=== PATIENT | male | born 1980 | race African-American/Black ===

== ENCOUNTER 2021-06-02 09:00 | Inpatient (IN) ==
[2021-06-02] MEDS ORDERED: SODIUM CHLORIDE 0.9% 1000ML 1,000 ML IV SCH (09:30)
--- NOTE | 2021-06-02 09:40 | Emergency Department Note ---
Impression & Plan DKA (diabetic ketoacidosis), Altered mental status, Dehydration, COVID-19 ED Provider Note Provider: Alex Phillip MD DATE OF SERVICE: 06/02/2021 CHIEF COMPLAINT: Confusion/fatigue HISTORY OF PRESENT ILLNESS: Patient is a 41-year-old presenting via ambulance from the long-term today where he is an inmate reports that he has been a bit more sluggish and fatigued since yesterday. Evidently yesterday had a headache around one of the other inmates gave him 2 tablets which by report he was told her Tylenol. Records from the present in case this occurred around 11 AM and by report was a total of 600 mg of Trileptal. Records from the long-term indicate he was seen [facility] following commands but was a little bit "sluggish ". Patient was given some Narcan and evidently had some improvement with this. Records indicate this morning the [facility] complaining of some chest pain and pressure and was experiencing some increased labored breathing. He was sent here for further evaluation. Blood sugar was noted to be over 400 prior to arrival. In discussion with the patient himself he states he is just very thirsty and wants some juice. States he had some juice this morning but no breakfast. States his head is feeling better. Denies any abdominal pain or chest pain at this time. Denies any numbness or weakness. Denies any nausea. Patient knows these at the hospital but states 1999. He is laughing and just for most question redirection states "just give me some juice man". While he is secured with shackles he is moving all extremities. He denies other coingestants to me or drugs. Denies a history of diabetes to his knowledge REVIEW OF SYSTEMS: A total of 10 review of systems was obtained and negative except as stated above in the HPI. 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 PERRL NECK: Trachea midline. Supple. ENT: Mucous membranes pink and moist. LUNGS: Airway patent. No retractions. Breath sounds clear HEART: Regular tachycardic rate and rhythm. No chest wall tenderness ABDOMEN: Soft and non-tender, without guarding or rebound. SKIN: Acyanotic, warm, dry, without rashes EXTREMITIES: Without swelling, tenderness or deformity handcuffs and leg shackles in place with guards at bedside. NEUROLOGICAL: No focal deficits moving all extremities without significant focal weakness appreciated. No aphasia. No facial droop with some minimally slurred speech at times. Intact gross sensation in all 4 extremities. EK return in sinus tachycardia. No PVC or PAC. No acute ST segment elevation or depression. QTC 534. Left axis. CONTINUOUS CARDIAC MONITORING: was ordered and showed a heart rate of 90s-110s bpm in normal sinus rhythm to sinus tachycardia Patient's laboratory studies and imaging reviewed. Differential includes Infection, dehydration, metabolic abnormality, hypo/hyperglycemia, electrolyte disturbance, anemia, hypoxia, cardiac sources, intracerebral event, toxicologic, neurologic, as well as other pathologies. IMPRESSION/MEDICAL DECISION MAKING: Patient is a little bit fatigued and slow to respond but answers questions. He is moving all extremities and denies significant pain. Patient is not the best historian additional history obtained from records from the long-term available. Patient denies any pain at this time. EKG was obtained as well as basic labs. Given some fatigue CT the head was obtained as well as toxicology studies. Given some IV fluids. Covid test completed. EKG without evidence of STEMI. QTC is noted to be prolonged. Pupils not pinpoint but with some mild confusion and some response yesterday, will trial a dose of narcan here. Patient denies chest pain currently but maybe some earlier per his report. Chest x-ray and CT of the head per radiology without any significant acute abnormalities noted. Patient's Covid test does return positive may explain some of his fatigue issues. UDS was negative. Urine not impressive for infection. Some difficulty establishing IV access and some difficulty obtaining blood work. No alcohol elevation. No evidence of significant salicylate or aspirin toxici ty. Ketones in the urine with significant anion gap and low bicarb. Creatinine 1.6 is likely elevated but no prior baseline available. Glucose again has been elevated. Troponin not elevated and no transaminitis. Procalcitonin not severely elevated and white blood cell count just above normal at 10.8. Doubt this is significantly infectious. Question new onset diabetes and DKA. Given additional IV fluids and insulin drip started given these concerns. This could explain some of his encephalopathy as well. Patient will require further care at the hospital. Hospitalist contacted. ABG shows acidosis consistent with DKA. All Covid positive I believe this is less likely to be the primary pathology of his illness. DIAGNOSIS: DKA, confusion, dehydration, COVID-19 positive test DISPOSITION: Hospitalist will evaluate Patient was agreeable with this plan. Critical Care I have personally spent 46 minutes of critical care time in the direct management of this patient. This includes bedside care, interpretation of diagnostic studies, and testing, discussion with consultants, patient, and other required patient management activities. These 46 minutes is in excess of all separately billable procedures. Past Med/Surg History Social History Smoking Status: Unknown if ever smoked Tobacco Type: Cigarettes Do You Dip or Chew Tobacco: No; Hx Alcohol Use: No Hx Substance Use: No Preferred Language: Polish Communication Ability: Effective Sharepoint Admin Required: No Beliefs That Will Affect Care: None Current Living Situation: Other Other Information That Helps Us Care for You: No Feels Safe at Home: Yes Assistive Devices: None Allergies Allergies Allergy/AdvReac Type Severity Reaction Status Date / Time No Known Allergies Allergy Unverified 06/02/21 11:43 Home Meds Home Medications Medication Instructions Recorded Confirmed ciclesonide 160 mcg/actuation 1 puff INHALATION BID 06/02/21 06/02/21 aerosol inhaler (Alvesco) levalbuterol tartrate 45 2 inh INHALATION QID PRN 06/02/21 06/02/21 mcg/actuation aerosol inhaler (Xopenex HFA) Results & Data (ED) Vital Signs Vital Signs - 24 hr 06/02/21 09:11 06/02/21 11:50 Temperature 36.5 C Temperature Source Oral Pulse Rate 103 H Respiratory Rate 16 20 Respiratory Depth Normal Blood Pressure 137/99 Blood Pressure [Right Arm] 141/100 H Blood Pressure Mean 111 Blood Pressure Mean [Right Arm] 113 Pulse Oximetry 98 100 Oxygen Delivery Method Room Air Room Air Sepsis Recent Fever Within 48 Hours No Sepsis New/Unexplained Change in Mental Status N/A Sepsis Action Taken by Nursing No Action Required Laboratory Data Result diagrams: 06/02/21 10:36 06/02/21 14:16 Lab Results 06/02/21 06/02/21 06/02/21 Range/Units 09:33 09:45 09:47 WBC (4.8-10.8) K/uL RBC (4.7-6.1) M/uL Hgb (14.0-18.0) g/dL Hct (42-52) % MCV (80-100) fL MCH (25-34) pg MCHC (32-36) g/dL RDW Std Deviation (36.4-46.3) fL RDW Coeff of Gisselle (11.5-14.5) % Plt Count (130-400) K/uL MPV (7.4-10.4) fL Immature Gran % (Auto) % Neut % (Auto) % Lymph % (Auto) % Todd % (Auto) % Eos % (Auto) % Baso % (Auto) % Neut # (Auto) (1.4-6.5) K/uL Lymph # (Auto) (1.2-3.4) K/uL Todd # (Auto) (0.11-0.59) K/uL Eos # (Auto) (0-0.5) K/uL Baso # (Auto) (0-0.2) K/uL Immature Gran # (Auto) (0.00-0.02) K/uL ABG pH (7.35-7.45) ABG pCO2 (35-46) mmHg ABG pO2 (80-95) mmHg ABG HCO3 (19-24) mmol/L ABG O2 Saturation (90-95) % ABG Base Excess (-9-1.8) mEq/L Chuy Test (Pos) Barometric Pressure mm/Hg Oxygen Given Sodium (136-145) mmol/L Potassium (3.5-5.1) mmol/L Chloride (98-107) mmol/L Carbon Dioxide (21-32) mmol/L Anion Gap (3-11) BUN (7-18) mg/dl Creatinine (0.6-1.4) mg/dl Est Cr Clr Drug Dosing ml/min Est GFR ( Amer) ml/min Est GFR (Non-Af Amer) ml/min BUN/Creatinine Ratio (10-20) Glucose (70-99) mg/dl POC Glucose 411 H* (70-99) mg/dl Estimat Average Glucose mg/dl Hemoglobin A1c (4.5-5.6) % Calcium (8.5-10.1) mg/dl Total Bilirubin (0.2-1) mg/dl AST (15-37) U/L ALT (12-78) Alkaline Phosphatase (45-117) U/L Troponin I (0-0.045) ng/ml Total Protein (6.4-8.2) gm/dl Albumin (3.4-5.0) gm/dl Globulin (2.5-4.0) gm/dl Albumin/Globulin Ratio (0.9-2) Beta-Hydroxybutyric Acd (0.2-2.81) mg/dl Procalcitonin (0-0.5) ng/ml TSH (0.300-4.500) uIu/ml Urine Color Urine Appearance (Clear) Urine pH (4.5-7.5) Ur Specific [place] (1.000-1.030) Urine Protein (Negative) Urine Glucose (UA) (Negative) Urine Ketones (Negative) Urine Blood (Negative) Urine Nitrite (Negative) Urine Bilirubin (Negative) Urine Urobilinogen (Negative) Ur Leukocyte Esterase (Negative) Urine WBC (Auto) (0-5) /hpf Urine RBC (Auto) (0-4) /hpf U Hyaline Cast (Auto) (0-5) /lpf U Epithel Cells (Auto) (0-5) /lpf Urine Bacteria (Auto) (Negative) Salicylates (2.8-20) mg/dl Urine Opiates Screen Neg (Neg) Ur Methadone, Qual Neg (Neg) Acetaminophen (10-30) ug/ml Urine Barbiturates Neg (Neg) Ur Phencyclidine (PCP) Neg (Neg) U Amphetamin/Meth Scrn Neg (Neg) MDMA (Ecstasy) Screen Neg (Neg) U Benzodiazepines Scrn Neg (Neg) Ur Cocaine Metabolite Neg (Neg) U Marijuana (THC) Screen Neg (Neg) Ethyl Alcohol mg/dL (0-3) mg/dl SARS-CoV-2, RNA, NAAT POSITIVE A* (NEGATIVE) 06/02/21 06/02/21 06/02/21 Range/Units 09:47 09:56 09:57 WBC (4.8-10.8) K/uL RBC (4.7-6.1) M/uL Hgb (14.0-18.0) g/dL Hct (42-52) % MCV (80-100) fL MCH (25-34) pg MCHC (32-36) g/dL RDW Std Deviation (36.4-46.3) fL RDW Coeff of Gisselle (11.5-14.5) % Plt Count (130-400) K/uL MPV (7.4-10.4) fL Immature Gran % (Auto) % Neut % (Auto) % Lymph % (Auto) % Todd % (Auto) % Eos % (Auto) % Baso % (Auto) % Neut # (Auto) (1.4-6.5) K/uL Lymph # (Auto) (1.2-3.4) K/uL Todd # (Auto) (0.11-0.59) K/uL Eos # (Auto) (0-0.5) K/uL Baso # (Auto) (0-0.2) K/uL Immature Gran # (Auto) (0.00-0.02) K/uL ABG pH (7.35-7.45) ABG pCO2 (35-46) mmHg ABG pO2 (80-95) mmHg ABG HCO3 (19-24) mmol/L ABG O2 Saturation (90-95) % ABG Base Excess (-9-1.8) mEq/L Chuy Test (Pos) Barometric Pressure mm/Hg Oxygen Given Sodium 132 L (136-145) mmol/L Potassium 4.4 (3.5-5.1) mmol/L Chloride 103 (98-107) mmol/L Carbon Dioxide 4 L* (21-32) mmol/L Anion Gap 25.0 H (3-11) BUN 22 H (7-18) mg/dl Creatinine 1.63 H (0.6-1.4) mg/dl Est Cr Clr Drug Dosing 64.8 ml/min Est GFR ( Amer) 59.3 ml/min Est GFR (Non-Af Amer) 51.2 ml/min BUN/Creatinine Ratio 13.8 (10-20) Glucose 441 H* (70-99) mg/dl POC Glucose (70-99) mg/dl Estimat Average Glucose mg/dl Hemoglobin A1c (4.5-5.6) % Calcium 9.0 (8.5-10.1) mg/dl Total Bilirubin 0.5 (0.2-1) mg/dl AST 18 (15-37) U/L ALT 32 (12-78) Alkaline Phosphatase 139 H (45-117) U/L Troponin I < 0.015 (0-0.045) ng/ml Total Protein 9.1 H (6.4-8.2) gm/dl Albumin 3.7 (3.4-5.0) gm/dl Globulin 5.4 H (2.5-4.0) gm/dl Albumin/Globulin Ratio 0.7 L (0.9-2) Beta-Hydroxybutyric Acd 106.15 H (0.2-2.81) mg/dl Procalcitonin (0-0.5) ng/ml TSH 0.710 (0.300-4.500) uIu/ml Urine Color Yellow Urine Appearance Clear (Clear) Urine pH 5.0 (4.5-7.5) Ur Specific [place] 1.031 H (1.000-1.030) Urine Protein 2+ H (Negative) Urine Glucose (UA) 3+ H (Negative) Urine Ketones 4+ H (Negative) Urine Blood 2+ H (Negative) Urine Nitrite Negative (Negative) Urine Bilirubin Negative (Negative) Urine Urobilinogen Negative (Negative) Ur Leukocyte Esterase Negative (Negative) Urine WBC (Auto) 1-5 (0-5) /hpf Urine RBC (Auto) 0-4 (0-4) /hpf U Hyaline Cast (Auto) 1-5 (0-5) /lpf U Epithel Cells (Auto) 5-10 H (0-5) /lpf Urine Bacteria (Auto) Negative (Negative) Salicylates (2.8-20) mg/dl Urine Opiates Screen (Neg) Ur Methadone, Qual (Neg) Acetaminophen (10-30) ug/ml Urine Barbiturates (Neg) Ur Phencyclidine (PCP) (Neg) U Amphetamin/Meth Scrn (Neg) MDMA (Ecstasy) Screen (Neg) U Benzodiazepines Scrn (Neg) Ur Cocaine Metabolite (Neg) U Marijuana (THC) Screen (Neg) Ethyl Alcohol mg/dL < 3.0 (0-3) mg/dl SARS-CoV-2, RNA, NAAT (NEGATIVE) 06/02/21 06/02/21 06/02/21 Range/Units 09:57 10:36 10:36 WBC 10.82 H (4.8-10.8) K/uL RBC 6.02 (4.7-6.1) M/uL Hgb 18.3 H (14.0-18.0) g/dL Hct 52.7 H (42-52) % MCV 87.5 (80-100) fL MCH 30.4 (25-34) pg MCHC 34.7 (32-36) g/dL RDW Std Deviation 47.5 H (36.4-46.3) fL RDW Coeff of Gisselle 14.9 H (11.5-14.5) % Plt Count 479 H (130-400) K/uL MPV 10.1 (7.4-10.4) fL Immature Gran % (Auto) 1.1 % Neut % (Auto) 70.4 % Lymph % (Auto) 14.8 % Todd % (Auto) 13.2 % Eos % (Auto) 0.0 % Baso % (Auto) 0.5 % Neut # (Auto) 7.62 H (1.4-6.5) K/uL Lymph # (Auto) 1.60 (1.2-3.4) K/uL Todd # (Auto) 1.43 H (0.11-0.59) K/uL Eos # (Auto) 0.00 (0-0.5) K/uL Baso # (Auto) 0.05 (0-0.2) K/uL Immature Gran # (Auto) 0.12 H (0.00-0.02) K/uL ABG pH (7.35-7.45) ABG pCO2 (35-46) mmHg ABG pO2 (80-95) mmHg ABG HCO3 (19-24) mmol/L ABG O2 Saturation (90-95) % ABG Base Excess (-9-1.8) mEq/L Chuy Test (Pos) Barometric Pressure mm/Hg Oxygen Given Sodium (136-145) mmol/L Potassium (3.5-5.1) mmol/L Chloride (98-107) mmol/L Carbon Dioxide (21-32) mmol/L Anion Gap (3-11) BUN (7-18) mg/dl Creatinine (0.6-1.4) mg/dl Est Cr Clr Drug Dosing ml/min Est GFR ( Amer) ml/min Est GFR (Non-Af Amer) ml/min BUN/Creatinine Ratio (10-20) Glucose (70-99) mg/dl POC Glucose (70-99) mg/dl Estimat Average Glucose 384 mg/dl Hemoglobin A1c 15.0 H (4.5-5.6) % Calcium (8.5-10.1) mg/dl Total Bilirubin (0.2-1) mg/dl AST (15-37) U/L ALT (12-78) Alkaline Phosphatase (45-117) U/L Troponin I (0-0.045) ng/ml Total Protein (6.4-8.2) gm/dl Albumin (3.4-5.0) gm/dl Globulin (2.5-4.0) gm/dl Albumin/Globulin Ratio (0.9-2) Beta-Hydroxybutyric Acd (0.2-2.81) mg/dl Procalcitonin 0.15 (0-0.5) ng/ml TSH (0.300-4.500) uIu/ml Urine Color Urine Appearance (Clear) Urine pH (4.5-7.5) Ur Specific [place] (1.000-1.030) Urine Protein (Negative) Urine Glucose (UA) (Negative) Urine Ketones (Negative) Urine Blood (Negative) Urine Nitrite (Negative) Urine Bilirubin (Negative) Urine Urobilinogen (Negative) Ur Leukocyte Esterase (Negative) Urine WBC (Auto) (0-5) /hpf Urine RBC (Auto) (0-4) /hpf U Hyaline Cast (Auto) (0-5) /lpf U Epithel Cells (Auto) (0-5) /lpf Urine Bacteria (Auto) (Negative) Salicylates (2.8-20) mg/dl Urine Opiates Screen (Neg) Ur Methadone, Qual (Neg) Acetaminophen (10-30) ug/ml Urine Barbiturates (Neg) Ur Phencyclidine (PCP) (Neg) U Amphetamin/Meth Scrn (Neg) MDMA (Ecstasy) Screen (Neg) U Benzodiazepines Scrn (Neg) Ur Cocaine Metabolite (Neg) U Marijuana (THC) Screen (Neg) Ethyl Alcohol mg/dL (0-3) mg/dl SARS-CoV-2, RNA, NAAT (NEGATIVE) 06/02/21 06/02/21 06/02/21 Range/Units 10:36 12:40 12:56 WBC (4.8-10.8) K/uL RBC (4.7-6.1) M/uL Hgb (14.0-18.0) g/dL Hct (42-52) % MCV (80-100) fL MCH (25-34) pg MCHC (32-36) g/dL RDW Std Deviation (36.4-46.3) fL RDW Coeff of Gisselle (11.5-14.5) % Plt Count (130-400) K/uL MPV (7.4-10.4) fL Immature Gran % (Auto) % Neut % (Auto) % Lymph % (Auto) % Todd % (Auto) % Eos % (Auto) % Baso % (Auto) % Neut # (Auto) (1.4-6.5) K/uL Lymph # (Auto) (1.2-3.4) K/uL Todd # (Auto) (0.11-0.59) K/uL Eos # (Auto) (0-0.5) K/uL Baso # (Auto) (0-0.2) K/uL Immature Gran # (Auto) (0.00-0.02) K/uL ABG pH 7.09 L* (7.35-7.45) ABG pCO2 15 L (35-46) mmHg ABG pO2 126 H (80-95) mmHg ABG HCO3 4 L (19-24) mmol/L ABG O2 Saturation 97.9 H (90-95) % ABG Base Excess -23.0 L (-9-1.8) mEq/L Chuy Test POS (Pos) Barometric Pressure 729.1 mm/Hg Oxygen Given ROOM AIR Sodium (136-145) mmol/L Potassium (3.5-5.1) mmol/L Chloride (98-107) mmol/L Carbon Dioxide (21-32) mmol/L Anion Gap (3-11) BUN (7-18) mg/dl Creatinine (0.6-1.4) mg/dl Est Cr Clr Drug Dosing ml/min Est GFR ( Amer) ml/min Est GFR (Non-Af Amer) ml/min BUN/Creatinine Ratio (10-20) Glucose (70-99) mg/dl POC Glucose 422 H* (70-99) mg/dl Estimat Average Glucose mg/dl Hemoglobin A1c (4.5-5.6) % Calcium (8.5-10.1) mg/dl Total Bilirubin (0.2-1) mg/dl AST (15-37) U/L ALT (12-78) Alkaline Phosphatase (45-117) U/L Troponin I (0-0.045) ng/ml Total Protein (6.4-8.2) gm/dl Albumin (3.4-5.0) gm/dl Globulin (2.5-4.0) gm/dl Albumin/Globulin Ratio (0.9-2) Beta-Hydroxybutyric Acd (0.2-2.81) mg/dl Procalcitonin (0-0.5) ng/ml TSH (0.300-4.500) uIu/ml Urine Color Urine Appearance (Clear) Urine pH (4.5-7.5) Ur Specific [place] (1.000-1.030) Urine Protein (Negative) Urine Glucose (UA) (Negative) Urine Ketones (Negative) Urine Blood (Negative) Urine Nitrite (Negative) Urine Bilirubin (Negative) Urine Urobilinogen (Negative) Ur Leukocyte Esterase (Negative) Urine WBC (Auto) (0-5) /hpf Urine RBC (Auto) (0-4) /hpf U Hyaline Cast (Auto) (0-5) /lpf U Epithel Cells (Auto) (0-5) /lpf Urine Bacteria (Auto) (Negative) Salicylates 3.6 (2.8-20) mg/dl Urine Opiates Screen (Neg) Ur Methadone, Qual (Neg) Acetaminophen < 2 L (10-30) ug/ml Urine Barbiturates (Neg) Ur Phencyclidine (PCP) (Neg) U Amphetamin/Meth Scrn (Neg) MDMA (Ecstasy) Screen (Neg) U Benzodiazepines Scrn (Neg) Ur Cocaine Metabolite (Neg) U Marijuana (THC) Screen (Neg) Ethyl Alcohol mg/dL (0-3) mg/dl SARS-CoV-2, RNA, NAAT (NEGATIVE) Administered Medications Insulin Human Regular 250 (units/ Sodium Chloride) 250 mls @ 9 mls/hr IV .Q24H MARIA LUISA; Protocol Stop: 07/02/21 12:14 Last Admin: 06/02/21 13:16 Dose: 9 units/hr, 9 mls/hr Documented by: [id number] Cosigned by: [id number] Parenteral Electrolytes (Normosol-R) 1,000 mls @ 350 mls/hr IV .Q2H52M MARIA LUISA Stop: 07/02/21 12:59 Last Admin: 06/02/21 16:36 Dose: 350 mls/hr Documented by: [id number] Insulin Aspart (Insulin Aspart Per Unit) 0 units SC ACHS MARIA LUISA Stop: 07/02/21 16:29 Last Admin: 06/02/21 15:33 Dose: Not Given Documented by: [id number] Discontinued Medications Sodium Chloride (Nss 1000ml) 1,000 mls @ 999 mls/hr IV .Q1H1M [facility] Stop: 06/02/21 10:30 Last Infusion: 06/02/21 15:30 Dose: 0 mls/hr Documented by: [id number] Admin: 06/02/21 09:40 Dose: 999 mls/hr Documented by: [id number] Insulin Human Regular (Novolin-R Bolus From Bag) 9 units IV ONE ONE Stop: 06/02/21 12:16 Last Admin: 06/02/21 13:16 Dose: 9 units Documented by: [id number] Cosigned by: [id number] Naloxone HCl (Naloxone Hcl 0.4 Mg/1 Ml Vial/Carp) 2 mg IV NOW STA Stop: 06/02/21 10:16 Last Admin: 06/02/21 11:46 Dose: 2 mg Documented by: [id number] Imaging Data Radiologist's Impression: Chest X-Ray 06/02/21 09:30 XR chest 1V portable CLINICAL HISTORY: fatigue. Evaluate cardiopulmonary status COMPARISON STUDY: No previous studies for comparison. TECHNIQUE: 1 view of the chest FINDINGS: Single frontal view of the chest demonstrates the cardiomediastinal silhouette to be within normal limits. There is a decreased inspiratory effort with elevation of the hemidiaphragms and crowding of the bronchovascular markings at the lung bases and centrally. The lungs are clear of alveolar opacities. There is no evidence for pleural effusion. There is no evidence for vascular congestion. There is no acute osseous pathology. IMPRESSION: There is a decreased inspiratory effort with otherwise no acute chest disease. ACT 112: Negative or not required by law. Electronically signed by: Lalit Wood M.D. 06/02/2021 10:[address] 06/02/21 09:30 CT OF THE HEAD WITHOUT CONTRAST CLINICAL HISTORY: fatigue/confusion COMPARISON STUDY: No previous studies for comparison. CT DOSE: 1228.53 mGy.cm TECHNIQUE: Helical axial images of the head were obtained without IV contrast. Automated exposure control was utilized for the study. A dose lowering techn ique was utilized adhering to the principles of ALARA. FINDINGS: No acute intracranial hemorrhage, midline shift or mass effect is present. The ventricular system is unremarkable. The basal cisterns are patent. No extra-axial collections are present. There are no findings to suggest acute dural sinus thrombosis or acute territorial infarct. No significant calvarial abnormalities are present. 2 small mucous retention cyst within the left maxillary sinus are incidentally noted. There is moderate sphenoid sinus mucosal thickening. IMPRESSION: No acute intracranial findings. ACT 112: Negative or not required by law. Electronically signed by: Brannon Sultana M.D. 06/02/2021 10:26 AM Discharge Plan Visit Data Chief Complaint: Altered Mental Status ED Provider: Alex Phillip Discharge Problem: DKA (diabetic ketoacidosis), Altered mental status, Dehydration, COVID-19 Patient Disposition: Admitted As Inpatient Discharge Instructions Interventions: ED Discharge Assessment Last Done: 06/02/21 15:02 Discharge Problem: Altered mental status Qualifiers: Altered mental status type: disorientation Qualified Code(s): R41.0 - Disorientation, unspecified
[2021-06-02] MEDS ORDERED: NALOXONE HCL IV STA (09:50)
[2021-06-02] MEDS ORDERED: SODIUM CHLORIDE 0.9% IV STA (09:50)
[2021-06-02 10:01] LABS: Appearance Urine Clear (Clear); Bacteria Urine Automated Negative (Negative); Bilirubin Urine Negative (Negative); Blood Urine 2+ (Negative); Color Urine Yellow; Glucose Urine UA 3+ (Negative); Ketones Urine 4+ (Negative); Leukocyte Esterase Urine Negative (Negative); Nitrite Urine Negative (Negative); Protein Urine 2+ (Negative); RBC Urine Automated 0-4 /hpf (0-4); Specific Gravity Urine 1.031 (1.000-1.030); Urobilinogen Urine Negative (Negative)
--- NOTE | 2021-06-02 10:05 | XRay Report ---
XR chest 1V portable CLINICAL HISTORY: fatigue. Evaluate cardiopulmonary status COMPARISON STUDY: No previous studies for comparison. TECHNIQUE: 1 view of the chest FINDINGS: Single frontal view of the chest demonstrates the cardiomediastinal silhouette to be within normal li mits. There is a decreased inspiratory effort with elevation of the hemidiaphragms and crowding of th e bronchovascular markings at the lung bases and centrally. The lungs are clear of alveolar opacities . There is no evidence for pleural effusion. There is no evidence for vascular congestion. There is n o acute osseous pathology. IMPRESSION: There is a decreased inspiratory effort with otherwise no acute chest disease. ACT 112: Negative or not required by law. Electronically signed by: Lalit Wood M.D. 06/02/2021 10:04 AM
[2021-06-02] MEDS ORDERED: NALOXONE HCL 0.4 MG/1 ML VIAL/CARP IV STA (10:15)
[2021-06-02 10:23] LABS: Amphetamines+Metham, Urine Neg (Neg); Barbiturates, Urine Neg (Neg); Benzodiazepine, Urine Neg (Neg); Cocaine, Urine Neg (Neg); MDMA (Ecstacy), Urine Neg (Neg); Methadone, Urine Neg (Neg); Opiate, Urine Neg (Neg); Phencyclidine, Urine Neg (Neg)
--- NOTE | 2021-06-02 10:28 | CT Scan Report ---
CT OF THE HEAD WITHOUT CONTRAST CLINICAL HISTORY: fatigue/confusion COMPARISON STUDY: No previous studies for comparison. CT DOSE: 1228.53 mGy.cm TECHNIQUE: Helical axial images of the head were obtained without IV contrast. Automated exposure con trol was utilized for the study. A dose lowering technique was utilized adhering to the principles o f ALARA. FINDINGS: No acute intracranial hemorrhage, midline shift or mass effect is present. The ventricular system is unremarkable. The basal cisterns are patent. No extra-axial collections are present. There are no findings to suggest acute dural sinus thrombosis or acute territorial infarct. No significant calvarial abnormalities are present. 2 small mucous retention cyst within the left maxillary sinus ar e incidentally noted. There is moderate sphenoid sinus mucosal thickening. IMPRESSION: No acute intracranial findings. ACT 112: Negative or not required by law. Electronically signed by: Brannon Sultana M.D. 06/02/2021 10:26 AM
[2021-06-02 10:44] LABS: Basophils # (auto) 0.05 K/uL (0-0.2); Basophils % (auto) 0.5 %; Hematocrit (blood only) 52.7 % (42-52); Hemoglobin 18.3 g/dL (14.0-18.0); Immature Granulocytes # (auto) 0.12 K/uL (0.00-0.02); Immature Granulocytes % (auto) 1.1 %; Lymphocytes % (auto) 14.8 %; Mean Corpuscular Hemoglobin 30.4 pg (25-34); Mean Corpuscular Hgb Conc 34.7 g/dL (32-36); Mean Corpuscular Volume 87.5 fL (80-100); Mean Platelet Volume 10.1 fL (7.4-10.4); Monocytes # (auto) 1.43 K/uL (0.11-0.59); Monocytes % (auto) 13.2 %; Neutrophils # (auto) 7.62 K/uL (1.4-6.5); Neutrophils % (auto) 70.4 %; Platelet Count 479 K/uL (130-400); RDW Coefficient of Variation 14.9 % (11.5-14.5); RDW Standard Deviation 47.5 fL (36.4-46.3); Red Blood Count 6.02 M/uL (4.7-6.1); White Blood Count 10.82 K/uL (4.8-10.8)
[2021-06-02 11:46] LABS: Salicylate 3.6 mg/dl (2.8-20)
[2021-06-02 11:55] LABS: Acetaminophen < 2 ug/ml (10-30)
[2021-06-02 12:04] LABS: Alanine Aminotransferase 32 (12-78); Albumin Level 3.7 gm/dl (3.4-5.0); Aspartate Aminotransferase 18 U/L (15-37); BUN Creatinine Ratio 13.8 (10-20); Blood Urea Nitrogen 22 mg/dl (7-18); Carbon Dioxide 4 mmol/L (21-32); Chloride 103 mmol/L (98-107); Creatinine Clr Calc Pharmacy 64.8 ml/min; Est GFR (African American) 59.3 ml/min; Est GFR (Non-African American) 51.2 ml/min; Glucose 441 mg/dl (70-99); Potassium 4.4 mmol/L (3.5-5.1); Sodium 132 mmol/L (136-145)
[2021-06-02] MEDS ORDERED: STAT IV Infusion **Titration per Protocol STA ×3 (12:08→13:00)
[2021-06-02] MEDS ORDERED: CARBOHYDRATES FOR HYPOGLYCEMIA PO PRN (12:08)
[2021-06-02] MEDS ORDERED: GLUCOSE 40% GEL 15 GM TUBE PO PRN (12:08)
[2021-06-02] MEDS ORDERED: DEXTROSE 50% 50 ML SYRINGE IV PRN (12:08)
[2021-06-02] MEDS ORDERED: GLUCOSE 10 TABS/TUBE PO PRN (12:08)
[2021-06-02] MEDS ORDERED: DKA GOAL RANGE 150-250 mg/dl ONE ×2 (12:08→13:05)
[2021-06-02] MEDS ORDERED: GLUCAGON FOR INJ 1 MG VIAL SQ PRN (12:08)
[2021-06-02 12:10] LABS: Albumin Globulin Ratio 0.7 (0.9-2); Alkaline Phosphatase 139 U/L (45-117); Bilirubin,Total 0.5 mg/dl (0.2-1); Globulin 5.4 gm/dl (2.5-4.0); Total Protein 9.1 gm/dl (6.4-8.2); Troponin I < 0.015 ng/ml (0-0.045)
[2021-06-02] MEDS ORDERED: NovoLIN-R BOLUS FROM BAG IV ONE (12:15)
[2021-06-02 12:33] LABS: Beta-Hydroxybutyrate 106.15 mg/dl (0.2-2.81)
[2021-06-02 13:00] LABS: Allen Test POS (Pos); HCO3 ABG 4 mmol/L (19-24); Oxygen Saturation ABG 97.9 % (90-95); PCO2 ABG 15 mmHg (35-46); PO2 ABG 126 mmHg (80-95); pH ABG 7.09 (7.35-7.45)
[2021-06-02] MEDS ORDERED: PHARMACY GLYCEMIC MGMT CONSULT PRN (13:00)
[2021-06-02] MEDS ORDERED: INSULIN REGULAR 250 UNITS in SODIUM CHLORIDE 0.9% 247.5 ML IV SCH (13:00)
[2021-06-02] MEDS ORDERED: ALBUTEROL 0.083% NEBU SOLN 3 ML VIAL NEB PRN (13:08)
[2021-06-02] MEDS: INSULIN REGULAR 250 UNITS in SODIUM CHLORIDE 0.9% 247.5 ML IV SCH (13:16)
--- NOTE | 2021-06-02 13:42 | Electrocardiogram Report ---
Test Reason : Blood Pressure : / mmHG Vent. Rate : 103 BPM Atrial Rate : 103 BPM P-R Int : 132 ms QRS Dur : 084 ms QT Int : 360 ms P-R-T Axes : 067 -66 054 degrees QTc Int : 472 ms Poor data quality, interpretation may be adversely affected Sinus tachycardia Left axis deviation Abnormal ECG No previous ECGs available Confirmed by Lauro Arambula ([id number]) on 06/02/2021 1:42:14 PM Referred By: Confirmed By:Enzo Arambula
--- NOTE | 2021-06-02 13:53 | History & Physical Report ---
Date of Service June 02, 2021 Assessment & Plan (1) DKA (diabetic ketoacidosis): Plan: will admit and place on DKA protocol. Newly diagnosed diabetic. Severe meatolblic acidosis. will need to monitor electrolytes closely and replenish. will place on IVF obtain A1C. on insulin drip, IVF NPO. (2) Altered mental status: Plan: likely due to problem one (3) COVID-19: Plan: on room air no need for steroids or remdesevir place on lovenox. (4) Acute kidney failure: Plan: will order IVF. (5) Acute metabolic encephalopathy: Plan: from problem one. History of Present Illness Chief Complaint: Lethargy Primary Care Provider: ALY Danielson 41 yo male comes [facility] with confusion. In the ER was found to have an elevated blood sugar, anion gap, metabolic acidosis. Patient is a poor historian. Allergies Allergy/AdvReac Type Severity Reaction Status Date / Time No Known Allergies Allergy Unverified 06/02/21 11:43 Home Medications Medication Instructions Recorded Confirmed Type ciclesonide 160 mcg/actuation 1 puff INHALATION BID 06/02/21 06/02/21 History aerosol inhaler (Alvesco) levalbuterol tartrate 45 2 inh INHALATION QID PRN 06/02/21 06/02/21 History mcg/actuation aerosol inhaler (Xopenex HFA) Past Med/Surg History Social History Smoking Status: Unknown if ever smoked Tobacco Type: Cigarettes Do You Dip or Chew Tobacco: No; Hx Alcohol Use: No Hx Substance Use: No Preferred Language: Estonian Communication Ability: Effective 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: No Beliefs That Will Affect Care: None Current Living Situation: Other Other Information That Helps Us Care for You: No Feels Safe at Home: Yes Assistive Devices: None Review of Systems Review of Systems: Unobtainable due to cognitive status Physical Exam Constitutional: well developed, + ill appearing and + altered mental status Eyes: PERRL, conjunctivae normal, anicteric sclerae ENMT: Mouth: + dry oral mucous membranes Neck: trachea midline, no thyromegaly Respiratory: normal respiratory effort, lungs clear to auscultation Cardiovascular: Rate/Rhythm: regular rhythm and + tachycardic Gastrointestinal (Abdomen): normal bowel sounds, soft, nontender, no hepatosplenomegaly Musculoskeletal: no cyanosis or clubbing, extremities motor strength 5/5 Skin: no rashes, warm and dry Neurologic: PERRL, EOMI, accommodation nl, no face palsy, no dysarthria Psychiatric: A+Ox3, euthymic affect Lymphatic: no cervical or axillary lymphadenopathy Results & Data Results & Data ([facility]) Vital Signs (Past 12 Hours) Vital Signs Temp Pulse Resp BP BP Pulse Ox 06/02/21 11:50 20 141/100 H 100 06/02/21 09:11 36.5 C 103 H 16 137/99 98 Critical Care Time Critical Care Time: Yes Total Critical Care Time: 35 PG Care Time/CCT Total # of Minutes Spent Total Time Spent with Patient: Total time spent is greater than 50% in coordination of care (as documented) at patient's floor/unit and/or counseling patient: Critical Care Time: Yes Total Critical Care Time: 35 Coding Level of Care Code 34825 Initial Inpt Care Lvl 3 (25 - SIGNIFICANT, SEPARATELY IDENTIFIABLE ) Diagnoses DKA (diabetic ketoacidosis) E11.10 Altered mental status R41.0 Altered mental status type: disorientation COVID-19 U07.1 Acute kidney failure N17.9 Acute metabolic encephalopathy G93.41 Additional Codes Critical Care Time - Critical Care Time: Yes ([id number]) Time Spent (min) 50 (1) Altered mental status Altered mental status type: disorientation Qualified Code(s): R41.0 - Disorientation, unspecified
[2021-06-02 14:07] LABS: Estimated Average Glucose 384 mg/dl
[2021-06-02 15:04] LABS: BUN Creatinine Ratio 13.5 (10-20); Calcium 8.8 mg/dl (8.5-10.1); Creatinine Clr Calc Pharmacy 64.4 ml/min; Est GFR (African American) 58.9 ml/min; Est GFR (Non-African American) 50.8 ml/min; Phosphorus 2.3 mg/dl (2.5-4.9)
[2021-06-02] MEDS ORDERED: SODIUM BICARBONATE 8.4% 150 MEQ in WATER, STERILE 1,000 ML IV SCH (15:30)
[2021-06-02] MEDS: INSULIN ASPART PER UNIT SC SCH ×2 (15:33→19:36)
[2021-06-02] MEDS ORDERED: INSULIN GLARGINE SOLOSTAR 100 UNITS/ML 3 ML PEN SC ONE (15:45)
[2021-06-02] MEDS ORDERED: INSULIN ASPART PER UNIT SC SCH (16:30)
[2021-06-02] MEDS: NORMOSOL-R 1,000 ML IV SCH ×3 (16:36→23:18)
[2021-06-02 18:41] LABS: BUN Creatinine Ratio 16.5 (10-20); Calcium 8.1 mg/dl (8.5-10.1); Creatinine Clr Calc Pharmacy 77.7 ml/min; Est GFR (African American) 73.9 ml/min; Est GFR (Non-African American) 63.7 ml/min; Magnesium 2.7 mg/dl (1.8-2.4); Phosphorus 1.5 mg/dl (2.5-4.9); Potassium 3.9 mmol/L (3.5-5.1)
[2021-06-02] MEDS ORDERED: POTASSIUM PHOS 3 MMOL/1 ML INFUSION IV STA (19:58)
[2021-06-02] MEDS ORDERED: POTASSIUM PHOSPHATE 21 MMOL in SODIUM CHLORIDE 0.9% 500 ML IV ONE (20:15)
[2021-06-02 22:27] LABS: BUN Creatinine Ratio 21.1 (10-20); Calcium 5.7 mg/dl (8.5-10.1); Creatinine Clr Calc Pharmacy 121.4 ml/min; Est GFR (African American) 123.4 ml/min; Est GFR (Non-African American) 106.5 ml/min; Magnesium 2.7 mg/dl (1.8-2.4); Phosphorus 0.6 mg/dl (2.5-4.9); Potassium 3.3 mmol/L (3.5-5.1)
[2021-06-03] MEDS ORDERED: CALCIUM GLUCONATE 10% 1,000 MG in SODIUM CHLORIDE 0.9% 50 ML IV ONE (00:55)
[2021-06-03] MEDS ORDERED: ENOXAPARIN INJ 40 MG/0.4 ML SYR SQ ONE (02:00)
[2021-06-03 02:02] LABS: BUN Creatinine Ratio 15.5 (10-20); Calcium 7.9 mg/dl (8.5-10.1); Creatinine Clr Calc Pharmacy 83.8 ml/min; Est GFR (Non-African American) 69.9 ml/min; Magnesium 2.7 mg/dl (1.8-2.4)
[2021-06-03] MEDS: NORMOSOL-R 1,000 ML IV SCH ×2 (02:15→05:17)
[2021-06-03] MEDS ORDERED: ONDANSETRON INJ 2 MG/ML 2 ML VIAL IV PRN (04:18)
[2021-06-03] MEDS ORDERED: ONDANSETRON INJ 2 MG/ML 2 ML VIAL ONE (04:20)
[2021-06-03] MEDS ORDERED: D5W AND 1/2NSS + 20MEQ KCL 20 MEQ/1,000 ML BAG IV SCH (05:30)
[2021-06-03] MEDS: D5W AND 1/4NSS + 20MEQ KCL 20 MEQ/1,000 ML BAG IV SCH ×3 (05:48→17:34)
[2021-06-03 06:02] LABS: BUN Creatinine Ratio 14.2 (10-20); Calcium 8.1 mg/dl (8.5-10.1); Creatinine Clr Calc Pharmacy 83.8 ml/min; Est GFR (Non-African American) 69.9 ml/min; Magnesium 2.7 mg/dl (1.8-2.4); Potassium 3.8 mmol/L (3.5-5.1)
[2021-06-03] MEDS ORDERED: POTASSIUM PHOS 3 MMOL/1 ML INFUSION IV STA ×3 (06:41→19:07)
[2021-06-03] MEDS ORDERED: POTASSIUM PHOSPHATE 21 MMOL in SODIUM CHLORIDE 0.9% 500 ML IV ONE (07:15)
[2021-06-03] MEDS ORDERED: INSULIN GLARGINE SOLOSTAR 100 UNITS/ML 3 ML PEN SC ONE ×2 (08:00→16:30)
[2021-06-03] MEDS ORDERED: POTASSIUM PHOSPHATE 30 MMOL in SODIUM CHLORIDE 0.9% 500 ML IV ONE ×2 (08:15→19:15)
[2021-06-03] MEDS: FLUTICASONE FUROATE 100MCG 14 PUFFS/INHALER INH SCH (09:07)
[2021-06-03] MEDS: INSULIN ASPART PER UNIT SC SCH ×4 (09:25→20:08)
[2021-06-03 09:56] LABS: BUN Creatinine Ratio 12.8 (10-20); Creatinine Clr Calc Pharmacy 87.3 ml/min; Est GFR (African American) 75.2 ml/min; Est GFR (Non-African American) 64.9 ml/min; Magnesium 2.6 mg/dl (1.8-2.4); Potassium 3.5 mmol/L (3.5-5.1)
[2021-06-03 10:13] LABS: Phosphorus 0.6 mg/dl (2.5-4.9)
[2021-06-03] MEDS ORDERED: POTASSIUM PHOSPHATE 9 MMOL in SODIUM CHLORIDE 0.9% 250 ML IV ONE (11:00)
[2021-06-03] MEDS: ENOXAPARIN INJ 40 MG/0.4 ML SYR SQ SCH ×2 (12:49→20:08)
[2021-06-03 13:33] LABS: Calcium 7.9 mg/dl (8.5-10.1); Creatinine Clr Calc Pharmacy 98.3 ml/min; Est GFR (African American) 86.8 ml/min; Est GFR (Non-African American) 74.9 ml/min; Potassium 3.6 mmol/L (3.5-5.1)
--- NOTE | 2021-06-03 14:19 | Hospitalist Progress Note ---
Date of Service June 03, 2021 Assessment & Plan (1) DKA (diabetic ketoacidosis): Plan: new diagnosis, could have been triggered by acute illness with COVID anion gap nearly closed at 13, HCO3 up to 12 continue insulin drip, Lantus added for basal coverage continue to aggressively replace electrolytes Phos low at 0.6, up to 0.9, will give 30mmol more of K Phos continue D5W 1/4NSS + KCl at 100mL/hr diabetic diet still lethargic but waking up more BMP in morning, can stop q4 checks (2) Acute metabolic encephalopathy: Plan: likely some metabolic encephalopathy from acidosis improving slowly (3) COVID-19: Plan: on room air no need for steroids or remdesevir place on lovenox. (4) Acute kidney failure: Plan: CR improved to 1.19, making a lot of urine decrease fluids to 100mL/hr (5) Hypophosphatemia: Plan: up to 0.9 after 30mmol of K phos give additional 30mmol of K phos and repeat in morning (6) Hypokalemia: Plan: resolved, continue KCl in fluids BMP in morning (7) Diabetes: Plan: new diagnosis, unclear what type will be discharged on insulin follow up with endocrinology Admission and Anticipated Discharge Date Admission Date: June 02, 2021 Subjective patient is still lethargic, he knows he is in the hospital and knows his name will not wake up very long to answer more detailed questions breathing is stable on room air reviewed labs and discussed with pharmacy anion gap is closing, Cr is stable, K is stable, Phos is quite low at 0.6 and repeat was 0.9 still requiring insulin drip at 7 units/hr, will reduce D5W to 100mL/hr pharmacy adding Lantus Review of Systems Review of Systems: All systems reviewed & are unremarkable except as noted in Subjective Constitutional: + fatigue and + weakness Physical Exam Physical Exam: General: well developed, well nourished, ill appearing, lethargic EENT: acid odor to breath Neck: supple, trachea midline, normal thyroid Lungs: clear to auscultation bilaterally, normal respiratory effort, no accessory muscle use, no distress Heart: regular S1 and S2, no murmur, peripheral pulses normal, capillary refill normal, no edema Abdomen: soft, NT, ND, + BS, no hepatomegaly, normal to percussion Extremities: normal in appearance, no cyanosis, no petechiae, strength is 5/5 bilaterally Neuro: lethargic, cooperative, moves all extremities, no focal motor deficits, CN II-XII intact Skin: warm, dry, no rash, normal turgor Psych: lethargic, oriented to person and place Results & Data Results & Data ([facility]) Vital Signs (Past 12 Hours) Vital Signs Temp Pulse Pulse Resp BP Pulse Ox 06/03/21 11:21 36.8 C 83 18 116/79 97 06/03/21 11:18 87 06/03/21 07:03 36.8 C 81 24 136/89 93 06/03/21 03:07 36.6 C 93 H 22 147/91 H 100 06/03/21 02:35 101 H Laboratory Results Laboratory Results - last 24 hr 06/02/21 06/02/21 06/02/21 14:15 14:16 14:16 VBG pH 7.01 L Sodium 134 L Potassium Chloride 107 Carbon Dioxide 7 L* Anion Gap 20.0 H BUN 22 H Creatinine 1.64 H Est Cr Clr Drug Dosing 64.4 Est GFR ( Amer) 58.9 Est GFR (Non-Af Amer) 50.8 BUN/Creatinine Ratio 13.5 Glucose 364 H* POC Glucose 356 H* Calcium 8.8 Phosphorus 2.3 L Magnesium Beta-Hydroxybutyric Acd Nasal Screen MRSA (PCR) 06/02/21 06/02/21 06/02/21 15:21 15:58 16:26 VBG pH Sodium Potassium Cancelled Chloride Carbon Dioxide Anion Gap BUN Creatinine Est Cr Clr Drug Dosing Est GFR ( Amer) Est GFR (Non-Af Amer) BUN/Creatinine Ratio Glucose POC Glucose 305 H* 270 H Calcium Phosphorus Magnesium Cancelled Beta-Hydroxybutyric Acd Cancelled Nasal Screen MRSA (PCR) 06/02/21 06/02/21 06/02/21 17:30 17:50 17:50 VBG pH 7.08 L Sodium 137 Potassium 3.9 Chloride 110 H Carbon Dioxide 8 L* Anion Gap 19.0 H BUN 22 H Creatinine 1.36 Est Cr Clr Drug Dosing 77.7 Est GFR ( Amer) 73.9 Est GFR (Non-Af Amer) 63.7 BUN/Creatinine Ratio 16.5 Glucose 254 H POC Glucose 235 H Calcium 8.1 L Phosphorus 1.5 L* Magnesium 2.7 H Beta-Hydroxybutyric Acd Nasal Screen MRSA (PCR) 06/02/21 06/02/21 06/02/21 18:33 19:10 20:07 VBG pH Sodium Potassium Chloride Carbon Dioxide Anion Gap BUN Creatinine Est Cr Clr Drug Dosing Est GFR ( Amer) Est GFR (Non-Af Amer) BUN/Creatinine Ratio Glucose POC Glucose 235 H 210 H 188 H Calcium Phosphorus Magnesium Beta-Hydroxybutyric Acd Nasal Screen MRSA (PCR) 06/02/21 06/02/21 06/02/21 21:30 21:30 22:04 VBG pH 7.11 L Sodium 149 H D Potassium 3.3 L D Chloride 93 L Carbon Dioxide 5 L* Anion Gap 51.0 H BUN 18 Creatinine 0.87 D Est Cr Clr Drug Dosing 121.4 Est GFR ( Amer) 123.4 Est GFR (Non-Af Amer) 106.5 BUN/Creatinine Ratio 21.1 H Glucose 118 H POC Glucose 130 H Calcium 5.7 L* D Phosphorus 0.6 L* Magnesium 2.7 H Beta-Hydroxybutyric Acd Nasal Screen MRSA (PCR) 06/02/21 06/02/21 06/03/21 23:04 Unknown 00:09 VBG pH Sodium Potassium Chloride Carbon Dioxide Anion Gap BUN Creatinine Est Cr Clr Drug Dosing Est GFR ( Amer) Est GFR (Non-Af Amer) BUN/Creatinine Ratio Glucose POC Glucose 124 H 117 H Calcium Phosphorus Magnesium Beta-Hydroxybutyric Acd Nasal Screen MRSA (PCR) Negative 06/03/21 06/03/21 06/03/21 01:01 01:02 01:09 VBG pH 7.18 L Sodium 140 D Potassium 4.0 D Chloride 114 H Carbon Dioxide 8 L* Anion Gap 18.0 H BUN 20 H Creatinine 1.26 D Est Cr Clr Drug Dosing 83.8 Est GFR ( Amer) 81.0 Est GFR (Non-Af Amer) 69.9 BUN/Creatinine Ratio 15.5 Glucose 166 H POC Glucose 141 H Calcium 7.9 L D Phosphorus 1.0 L* Magnesium 2.7 H Beta-Hydroxybutyric Acd Nasal Screen MRSA (PCR) 06/03/21 06/03/21 06/03/21 02:12 03:10 04:05 VBG pH Sodium Potassium Chloride Carbon Dioxide Anion Gap BUN Creatinine Est Cr Clr Drug Dosing Est GFR ( Amer) Est GFR (Non-Af Amer) BUN/Creatinine Ratio Glucose POC Glucose 177 H 202 H 209 H Calcium Phosphorus Magnesium Beta-Hydroxybutyric Acd Nasal Screen MRSA (PCR) 06/03/21 06/03/21 06/03/21 05:04 05:28 05:28 VBG pH 7.22 L Sodium 141 Potassium 3.8 Chloride 115 H Carbon Dioxide 10 L Anion Gap 16.0 H BUN 18 Creatinine 1.26 Est Cr Clr Drug Dosing 83.8 Est GFR ( Amer) 81.0 Est GFR (Non-Af Amer) 69.9 BUN/Creatinine Ratio 14.2 Glucose 194 H POC Glucose 180 H Calcium 8.1 L Phosphorus 1.0 L* Magnesium 2.7 H Beta-Hydroxybutyric Acd Nasal Screen MRSA (PCR) 06/03/21 06/03/21 06/03/21 06:03 07:01 08:35 VBG pH Sodium Potassium Chloride Carbon Dioxide Anion Gap BUN Creatinine Est Cr Clr Drug Dosing Est GFR ( Amer) Est GFR (Non-Af Amer) BUN/Creatinine Ratio Glucose POC Glucose 186 H 225 H 240 H Calcium Phosphorus Magnesium Beta-Hydroxybutyric Acd Nasal Screen MRSA (PCR) 06/03/21 06/03/21 06/03/21 09:12 09:12 09:27 VBG pH 7.24 L Sodium 141 Potassium 3.5 Chloride 115 H Carbon Dioxide 12 L Anion Gap 13.0 H BUN 17 Creatinine 1.34 Est Cr Clr Drug Dosing 87.3 Est GFR ( Amer) 75.2 Est GFR (Non-Af Amer) 64.9 BUN/Creatinine Ratio 12.8 Glucose 271 H POC Glucose 253 H Calcium 8.0 L Phosphorus 0.6 L* Magnesium 2.6 H Beta-Hydroxybutyric Acd Nasal Screen MRSA (PCR) 06/03/21 06/03/21 06/03/21 10:30 11:25 12:38 VBG pH Sodium Potassium Chloride Carbon Dioxide Anion Gap BUN Creatinine Est Cr Clr Drug Dosing Est GFR ( Amer) Est GFR (Non-Af Amer) BUN/Creatinine Ratio Glucose POC Glucose 268 H 260 H 245 H Calcium Phosphorus Magnesium Beta-Hydroxybutyric Acd Nasal Screen MRSA (PCR) 06/03/21 06/03/21 12:54 13:35 VBG pH Sodium 141 Potassium 3.6 Chloride 118 H Carbon Dioxide 12 L Anion Gap 11.0 BUN 16 Creatinine 1.19 Est Cr Clr Drug Dosing 98.3 Est GFR ( Amer) 86.8 Est GFR (Non-Af Amer) 74.9 BUN/Creatinine Ratio 13.0 Glucose 261 H POC Glucose 264 H Calcium 7.9 L Phosphorus Magnesium Beta-Hydroxybutyric Acd Nasal Screen MRSA (PCR) Medications Administered Current Inpatient Medications Albuterol (Albuterol 0.083% Nebu Soln 3 Ml Vial) 2.5 mg NEB Q6R PRN; Protocol PRN Reason: Wheezing Stop: 07/02/21 13:07 Dextrose (Dextrose 50% 50 Ml Syringe) 25 - 50 ml IV UD PRN; Protocol PRN Reason: Hypoglycemia Protocol Stop: 07/02/21 12:07 Last Admin: 06/03/21 00:33 Dose: 25 ml Documented by: Enoxaparin Sodium (Enoxaparin Inj 40 Mg/0.4 Ml Syr) 40 mg SQ BID MARIA LUISA Stop: 07/03/21 11:59 Last Admin: 06/03/21 12:49 Dose: 40 mg Documented by: Fluticasone Furoate (Fluticasone Furoate 100mcg 14 Puffs/Inhaler) 1 puffs INH DAILY MARIA LUISA Stop: 07/03/21 08:59 Last Admin: 06/03/21 09:07 Dose: 1 puffs Documented by: Glucagon (Glucagon For Inj 1 Mg Vial) 1 mg SQ UD PRN; Protocol PRN Reason: Hypoglycemia Protocol Stop: 07/02/21 12:07 Glucose (Glucose 10 Tabs/Tube) 4 - 8 tabs PO UD PRN; Protocol PRN Reason: Hypoglycemia Protocol Stop: 07/02/21 12:07 Glucose (Glucose 40% Gel 15 Gm Tube) 15 - 30 gm PO UD PRN; Protocol PRN Reason: Hypoglycemia Protocol Stop: 07/02/21 12:07 Insulin Human Regular 250 (units/ Sodium Chloride) 250 mls @ 7.2 mls/hr IV .Q24H MARIA LUISA; Protocol Stop: 07/02/21 12:14 Last Titration: 06/03/21 13:30 Dose: 7.2 units/hr, 7.2 mls/hr Documented by: Potassium Chloride/Dextrose/Sod Cl (D5w And 1/4nss + 20meq Kcl) 20 meq in 1,000 mls @ 200 mls/hr IV .Q5H MARIA LUISA; Protocol Stop: 06/03/21 15:29 Last Admin: 06/03/21 10:55 Dose: 200 mls/hr Documented by: Insulin Aspart (Insulin Aspart Per Unit) 0 units SC ACHS MARIA LUISA Stop: 07/02/21 16:29 Last Admin: 06/03/21 12:45 Dose: Not Given Documented by: Insulin Glargine (Insulin Glargine Solostar 100 Units/Ml 3 Ml Pen) 30 units SC QDD ONE; Protocol Stop: 06/03/21 16:31 Miscellaneous (Carbohydrates For Hypoglycemia ) 15 - 30 gm PO UD PRN PRN Reason: Hypoglycemia Protocol Stop: 07/02/21 12:07 Miscellaneous Information (Pharmacy Glycemic Mgmt Consult) 1 ea N/A UD PRN PRN Reason: Consult Stop: 07/02/21 12:59 Ondansetron HCl (Ondansetron Inj 2 Mg/Ml 2 Ml Vial) 4 mg IV Q4H PRN PRN Reason: Nausea Stop: 07/03/21 04:17 PG Care Time/CCT Total # of Minutes Spent Total Time Spent with Patient: Total time spent is greater than 50% in coordination of care (as documented) at patient's floor/unit and/or counseling patient: Coding Level of Care Code 95197 Subseq Hosp Care Lvl 3 Diagnoses DKA (diabetic ketoacidosis) E11.10 COVID-19 U07.1 Acute kidney failure N17.9 Acute metabolic encephalopathy G93.41 Hypophosphatemia E83.39 Hypokalemia E87.6 Diabetes E11.9
--- NOTE | 2021-06-03 14:35 | Pharmacy Report ---
Pharmacy Glycemic Short Note 2 - Date of Service June 03, 2021 - Glycemic Short BSG Results (Last 24 hours): 06/02/21 06/02/21 06/02/21 14:16 15:21 16:26 Glucose 364 H* POC Glucose 305 H* 270 H 06/02/21 06/02/21 06/02/21 17:30 17:50 18:33 Glucose 254 H POC Glucose 235 H 235 H 06/02/21 06/02/21 06/02/21 19:10 20:07 21:30 Glucose 118 H POC Glucose 210 H 188 H 06/02/21 06/02/21 06/03/21 22:04 23:04 00:09 Glucose POC Glucose 130 H 124 H 117 H 06/03/21 06/03/21 06/03/21 01:01 01:02 02:12 Glucose 166 H POC Glucose 141 H 177 H 06/03/21 06/03/21 06/03/21 03:10 04:05 05:04 Glucose POC Glucose 202 H 209 H 180 H 06/03/21 06/03/21 06/03/21 05:28 06:03 07:01 Glucose 194 H POC Glucose 186 H 225 H 06/03/21 06/03/21 06/03/21 08:35 09:12 09:27 Glucose 271 H POC Glucose 240 H 253 H 06/03/21 06/03/21 06/03/21 10:30 11:25 12:38 Glucose POC Glucose 268 H 260 H 245 H 06/03/21 06/03/21 12:54 13:35 Glucose 261 H POC Glucose 264 H OUTPATIENT ANTIDIABETIC REGIMEN: * none * A1c = 15% ASSESSMENT: * Bette is a newly diagnosed diabetic, A1c 15%, that presented in DKA * Patient was started on IV insulin infusion yesterday. Infusion is currently running at 7.2 units/hr. * Anion gap has closed, bi carb remains quite low and BSGs have ranged from 177- 268 mg/dL thus far today. Per discussion with provider, patient remains symptomatic (sleepy with acid odor on breath). Plan to continue IV infusion overnight, overlapped with Lantus SQ. PLAN FOR INPATIENT GLYCEMIC CONTROL: * Continue IV insulin infusion per protocol * goal range: 110 - 180 mg/dl * Basal insulin * Lantus 16 units SQ this morning * Lantus 30 units SQ with dinner * Reassess tomorrow * Bolus insulin * NovoLog per scale ACHS or Q6hrs while NPO * Goal Range: -- * Correction Factor: -- mg/dL/unit (per IV infusion) * Nutritional / Prandial insulin: -- (NPO) PLAN FOR DISCHARGE: * A1c is greater than or equal to 10%; consider triple therapy with metformin + basal insulin + (GLP1-RA OR prandial insulin). * Doses to be determined
[2021-06-04] MEDS: CALCIUM CARBONATE 500 MG CHEWABLE TAB PO PRN ×2 (01:09→13:26)
[2021-06-04] MEDS: INSULIN ASPART PER UNIT SC SCH ×5 (05:09→22:42)
[2021-06-04] MEDS: INSULIN REGULAR 250 UNITS in SODIUM CHLORIDE 0.9% 247.5 ML IV SCH (07:25)
[2021-06-04] MEDS ORDERED: INSULIN GLARGINE SOLOSTAR 100 UNITS/ML 3 ML PEN SC SCH ×2 (08:00→21:00)
[2021-06-04] MEDS: FLUTICASONE FUROATE 100MCG 14 PUFFS/INHALER INH SCH (08:38)
[2021-06-04] MEDS: ENOXAPARIN INJ 40 MG/0.4 ML SYR SQ SCH ×2 (08:38→22:28)
[2021-06-04 09:12] LABS: Base Excess VBG -5.1 mEq/L; Oxygen Saturation VBG 67.8 %; pH VBG 7.43 (7.36-7.41)
[2021-06-04 09:41] LABS: Calcium 8.4 mg/dl (8.5-10.1); Creatinine Clr Calc Pharmacy 115.2 ml/min; Est GFR (African American) 104.6 ml/min; Est GFR (Non-African American) 90.2 ml/min; Magnesium 2.2 mg/dl (1.8-2.4); Potassium 2.9 mmol/L (3.5-5.1)
[2021-06-04] MEDS ORDERED: POTASSIUM CHLORIDE CRTAB 20 MEQ TABCR PO STA (09:45)
[2021-06-04 09:59] LABS: Phosphorus 1.1 mg/dl (2.5-4.9)
--- NOTE | 2021-06-04 10:00 | Pharmacy Report ---
Pharmacy Glycemic Short Note 2 - Date of Service June 04, 2021 - Glycemic Short BSG Results (Last 24 hours): 06/04/21 06/04/21 06/04/21 00:33 02:09 03:04 Glucose POC Glucose 85 139 H 158 H 06/04/21 06/04/21 06/04/21 04:42 07:20 08:58 Glucose 195 H POC Glucose 178 H 168 H OUTPATIENT ANTIDIABETIC REGIMEN: * none - new diagnosis * A1c = 15% ASSESSMENT: 06/04: * Bette received 46 units of Lantus + continuous IV insulin infusion at a rate of 5- 7.2 units/hr yesterday * Insulin infusion was held overnight. RN notes improvement in mental status. * Dextrose containing fluids have been stopped. Patient has been advanced to diabetic diet and started on novolog per CF and CR. * Will d/c insulin infusion and continue transition to SQ basal + bolus insulin 06/03: * Bette is a newly diagnosed diabetic, A1c 15%, that presented in DKA * Patient was started on IV insulin infusion yesterday. Infusion is currently running at 7.2 units/hr. * Anion gap has closed, bi carb remains quite low and BSGs have ranged from 177- 268 mg/dL thus far today. Per discussion with provider, patient remains symptomatic (sleepy with acid odor on breath). Plan to continue IV infusion overnight, overlapped with Lantus SQ. PLAN FOR INPATIENT GLYCEMIC CONTROL: * Basal insulin * Lantus 40 units SQ qAM * Lantus per scale SQ qHS: 20 units for BSG <140, 30 units for 140-200, 40 units for BSG > 200 * Bolus insulin * NovoLog per scale ACHS or Q6hrs while NPO * Goal Range: 110 to 140 mg/dL * Correction Factor: 15 mg/dL/unit * Nutritional / Prandial insulin: 1 unit for every 5 grams CHO PLAN FOR DISCHARGE: New diagnosis with A1c >10%; consider triple therapy with metformin + basal insulin + prandial insulin. Metformin XR 500mg PO daily with evening meal. * Typically the XR formulation of metformin is better tolerated than the immediate release formulation. Continue to titrate metformin dosing upwards as recommended. Dosage increases should be made in increments of 500 mg weekly, up to 2,000 mg/day PO, given in divided doses. Doses above 2000 mg/day may be better tolerated if divided and given 3 times per day with meals. Max: 2,550 mg/day PO, in divided doses * B12 supplementation may be necessary with intermediate designer metformin Basal insulin: Semglee (insulin glargine-yfgn) ___ units SQ daily - dose to be determined Prandial insulin: Regular insulin [] units SQ [with meals/with the largest meal of the day] - doses to be determined
[2021-06-04] MEDS ORDERED: POTASSIUM PHOS 3 MMOL/1 ML INFUSION IV STA (10:29)
--- NOTE | 2021-06-04 10:29 | Hospitalist Progress Note ---
Date of Service June 04, 2021 Assessment & Plan (1) DKA (diabetic ketoacidosis): Plan: new diagnosis, could have been triggered by acute illness with COVID anion gap now closed, off insulin drip transition to Lantus 40 units, Novolog TID diabetic diet, eating well this morning IV fluids stopped phos low at 1.1, give 21mmol of K phos K low at 2.9, start on 20mEq PO TID BMP and Phos this afternoon at 3pm and again in morning (2) Acute metabolic encephalopathy: Plan: likely some metabolic encephalopathy from acidosis resolved today, he is alert and oriented x 3 (3) COVID-19: Plan: on room air no need for steroids or remdesevir place on lovenox for DVT prophylaxis (4) Acute kidney failure: Plan: CR improved to 1.0, making a lot of urine stop IV fluids (5) Hypophosphatemia: Plan: up to 1.1 after aggressive replacement give 21mmol again today (6) Hypokalemia: Plan: 2.9 today, start on 20mEq TID (7) Diabetes: Plan: new diagnosis, unclear what type will be discharged on insulin follow up with endocrinology Admission and Anticipated Discharge Date Admission Date: June 02, 2021 Subjective patient doing better today, he is off insulin drip just using Lantus and Novolog anion gap closed, Cr normal, K is low at 2.9, Phos is 1.1, bicarb up to 17 he is eating well, drinking well, no GI symptoms, no chest pain, no dyspnea, no fever discussed new diagnosis of diabetes, discussed that he will need insulin on discharge might need referred to endocrinology to determine type of diabetes and management going further Review of Systems Review of Systems: All systems reviewed & are unremarkable except as noted in Subjective Physical Exam Physical Exam: General: well developed, well nourished, comfortable, no distress EENT: acid odor to breath Neck: supple, trachea midline, normal thyroid Lungs: clear to auscultation bilaterally, normal respiratory effort, no accessory muscle use, no distress Heart: regular S1 and S2, no murmur, peripheral pulses normal, capillary refill normal, no edema Abdomen: soft, NT, ND, + BS, no hepatomegaly, normal to percussion Extremities: normal in appearance, no cyanosis, no petechiae, strength is 5/5 bilaterally Neuro: alert, cooperative, moves all extremities, no focal motor deficits, CN II-XII intact Skin: warm, dry, no rash, normal turgor Psych: alert, oriented x 3, euthymic affect Results & Data Results & Data ([facility]) Vital Signs (Past 12 Hours) Vital Signs Temp Pulse Pulse Resp BP Pulse Ox 06/04/21 07:37 87 06/04/21 07:17 36.8 C 99 H 18 130/77 98 06/04/21 03:02 36.4 C L 84 17 137/86 98 06/04/21 02:33 84 06/03/21 22:39 36.6 C 90 18 136/82 99 Laboratory Results Laboratory Results - last 24 hr 06/03/21 06/03/21 06/03/21 11:25 12:38 12:54 VBG pH VBG pCO2 VBG pO2 VBG HCO3 VBG O2 Saturation VBG Base Excess Barometric Pressure Sodium 141 Potassium 3.6 Chloride 118 H Carbon Dioxide 12 L Anion Gap 11.0 BUN 16 Creatinine 1.19 Est Cr Clr Drug Dosing 98.3 Est GFR ( Amer) 86.8 Est GFR (Non-Af Amer) 74.9 BUN/Creatinine Ratio 13.0 Glucose 261 H POC Glucose 260 H 245 H Calcium 7.9 L Phosphorus Magnesium 06/03/21 06/03/21 06/03/21 12:54 13:35 14:29 VBG pH VBG pCO2 VBG pO2 VBG HCO3 VBG O2 Saturation VBG Base Excess Barometric Pressure Sodium Potassium Chloride Carbon Dioxide Anion Gap BUN Creatinine Est Cr Clr Drug Dosing Est GFR ( Amer) Est GFR (Non-Af Amer) BUN/Creatinine Ratio Glucose POC Glucose 264 H 222 H Calcium Phosphorus 0.9 L* Magnesium 06/03/21 06/03/21 06/03/21 15:26 16:36 18:31 VBG pH VBG pCO2 VBG pO2 VBG HCO3 VBG O2 Saturation VBG Base Excess Barometric Pressure Sodium Potassium Chloride Carbon Dioxide Anion Gap BUN Creatinine Est Cr Clr Drug Dosing Est GFR ( Amer) Est GFR (Non-Af Amer) BUN/Creatinine Ratio Glucose POC Glucose 218 H 216 H 156 H Calcium Phosphorus Magnesium 06/03/21 06/03/21 06/04/21 20:31 22:36 00:33 VBG pH VBG pCO2 VBG pO2 VBG HCO3 VBG O2 Saturation VBG Base Excess Barometric Pressure Sodium Potassium Chloride Carbon Dioxide Anion Gap BUN Creatinine Est Cr Clr Drug Dosing Est GFR ( Amer) Est GFR (Non-Af Amer) BUN/Creatinine Ratio Glucose POC Glucose 137 H 122 H 85 Calcium Phosphorus Magnesium 06/04/21 06/04/21 06/04/21 02:09 03:04 04:42 VBG pH VBG pCO2 VBG pO2 VBG HCO3 VBG O2 Saturation VBG Base Excess Barometric Pressure Sodium Potassium Chloride Carbon Dioxide Anion Gap BUN Creatinine Est Cr Clr Drug Dosing Est GFR ( Amer) Est GFR (Non-Af Amer) BUN/Creatinine Ratio Glucose POC Glucose 139 H 158 H 178 H Calcium Phosphorus Magnesium 06/04/21 06/04/21 06/04/21 07:20 08:58 08:58 VBG pH 7.43 H VBG pCO2 27 L VBG pO2 32 VBG HCO3 18 VBG O2 Saturation 67.8 VBG Base Excess -5.1 Barometric Pressure 727.9 Sodium 141 Potassium 2.9 L D Chloride 114 H Carbon Dioxide 17 L Anion Gap 9.0 BUN 10 D Creatinine 1.02 Est Cr Clr Drug Dosing 115.2 Est GFR ( Amer) 104.6 Est GFR (Non-Af Amer) 90.2 BUN/Creatinine Ratio 10.0 Glucose 195 H POC Glucose 168 H Calcium 8.4 L Phosphorus 1.1 L* Magnesium 2.2 Medications Administered Current Inpatient Medications Albuterol (Albuterol 0.083% Nebu Soln 3 Ml Vial) 2.5 mg NEB Q6R PRN; Protocol PRN Reason: Wheezing Stop: 07/02/21 13:07 Calcium Carbonate (Calcium Carbonate 500 Mg Chewable Tab) 500 mg PO Q12 PRN PRN Reason: Indigestion Stop: 07/04/21 00:55 Last Admin: 06/04/21 01:09 Dose: 500 mg Documented by: Dextrose (Dextrose 50% 50 Ml Syringe) 25 - 50 ml IV UD PRN; Protocol PRN Reason: Hypoglycemia Protocol Stop: 07/02/21 12:07 Last Admin: 06/03/21 00:33 Dose: 25 ml Documented by: Enoxaparin Sodium (Enoxaparin Inj 40 Mg/0.4 Ml Syr) 40 mg SQ BID MARIA LUISA Stop: 07/03/21 11:59 Last Admin: 06/04/21 08:38 Dose: 40 mg Documented by: Fluticasone Furoate (Fluticasone Furoate 100mcg 14 Puffs/Inhaler) 1 puffs [facility]H [facility]ILY [facility] Stop: 07/03/21 08:59 Last Admin: 06/04/21 08:38 Dose: 1 puffs Documented by: Glucagon (Glucagon For Inj 1 Mg Vial) 1 mg SQ UD PRN; Protocol PRN Reason: Hypoglycemia Protocol Stop: 07/02/21 12:07 Glucose (Glucose 10 Tabs/Tube) 4 - 8 tabs PO UD PRN; Protocol PRN Reason: Hypoglycemia Protocol Stop: 07/02/21 12:07 Glucose (Glucose 40% Gel 15 Gm Tube) 15 - 30 gm PO UD PRN; Protocol PRN Reason: Hypoglycemia Protocol Stop: 07/02/21 12:07 Insulin Human Regular 250 (units/ Sodium Chloride) 250 mls @ 0 mls/hr IV .Q0M [facility]; Protocol Stop: 07/02/21 12:14 Last Titration: 06/04/21 07:26 Dose: Infused Documented by: Potassium Phosphate 21 mmol/ (Sodium Chloride) 507 mls @ 88 mls/hr IV 1100 ONE Stop: 06/04/21 16:45 Insulin Aspart (Insulin Aspart Per Unit) 0 units SC [facility] Stop: 07/02/21 16:29 Last Admin: 06/03/21 20:08 Dose: Not Given Documented by: Insulin Aspart (Insulin Aspart Per Unit) [address] [facility] Stop: 07/04/21 04:59 Last Admin: 06/04/21 08:36 Dose: 9 units Documented by: Insulin Glargine (Insulin Glargine Solostar 100 Units/Ml 3 Ml Pen) 40 units SC [facility]AM [facility]; Protocol Stop: 07/04/21 07:59 Last Admin: 06/04/21 08:38 Dose: 40 units Documented by: Miscellaneous (Carbohydrates For Hypoglycemia ) 15 - 30 gm PO UD PRN PRN Reason: Hypoglycemia Protocol Stop: 07/02/21 12:07 Miscellaneous Information (Pharmacy Glycemic Mgmt Consult) 1 ea N/A UD PRN PRN Reason: Consult Stop: 07/02/21 12:59 Ondansetron HCl (Ondansetron Inj 2 Mg/Ml 2 Ml Vial) 4 mg IV Q4H PRN PRN Reason: Nausea Stop: 07/03/21 04:17 Potassium Chloride (Potassium Chloride Crtab 20 Meq Tabcr) 20 meq PO TID MARIA LUISA Stop: 07/04/21 13:59 PG Care Time/CCT Total # of Minutes Spent Total Time Spent with Patient: Total time spent is greater than 50% in coordination of care (as documented) at patient's floor/unit and/or counseling patient: Coding Level of Care Code 20217 Subseq Hosp Care Lvl 3 Diagnoses DKA (diabetic ketoacidosis) E11.10 Acute metabolic encephalopathy G93.41 COVID-19 U07.1 Acute kidney failure N17.9 Hypophosphatemia E83.39 Hypokalemia E87.6 Diabetes E11.9
[2021-06-04] MEDS ORDERED: POTASSIUM PHOSPHATE 21 MMOL in SODIUM CHLORIDE 0.9% 500 ML IV ONE (11:00)
[2021-06-04] MEDS ORDERED: CALCIUM CARBONATE 500 MG CHEWABLE TAB PO PRN (12:30)
[2021-06-04] MEDS: POTASSIUM CHLORIDE CRTAB 20 MEQ TABCR PO SCH ×2 (14:55→22:32)
[2021-06-04 16:06] LABS: BUN Creatinine Ratio 11.6 (10-20); Calcium 8.3 mg/dl (8.5-10.1); Creatinine Clr Calc Pharmacy 135.1 ml/min; Est GFR (African American) 123.4 ml/min; Est GFR (Non-African American) 106.5 ml/min; Potassium 2.8 mmol/L (3.5-5.1)
[2021-06-04 16:18] LABS: Phosphorus 1.6 mg/dl (2.5-4.9)
[2021-06-05 06:29] LABS: BUN Creatinine Ratio 12.5 (10-20); Calcium 8.3 mg/dl (8.5-10.1); Creatinine Clr Calc Pharmacy 162.3 ml/min; Est GFR (African American) 134.1 ml/min; Est GFR (Non-African American) 115.7 ml/min; Magnesium 2.2 mg/dl (1.8-2.4); Potassium 2.6 mmol/L (3.5-5.1)
[2021-06-05 06:32] LABS: Phosphorus 2.2 mg/dl (2.5-4.9)
[2021-06-05] MEDS ORDERED: POTASSIUM PHOS 3 MMOL/1 ML INFUSION IV STA (07:55)
[2021-06-05] MEDS ORDERED: POTASSIUM PHOSPHATE 15 MMOL in SODIUM CHLORIDE 0.9% 250 ML IV ONE (08:15)
[2021-06-05] MEDS: ENOXAPARIN INJ 40 MG/0.4 ML SYR SQ SCH (08:50)
[2021-06-05] MEDS: POTASSIUM CHLORIDE CRTAB 20 MEQ TABCR PO SCH ×2 (08:50→12:56)
[2021-06-05] MEDS: FLUTICASONE FUROATE 100MCG 14 PUFFS/INHALER INH SCH (08:50)
[2021-06-05] MEDS ORDERED: INSULIN GLARGINE SOLOSTAR 100 UNITS/ML 3 ML PEN SC SCH (09:00)
[2021-06-05] MEDS: INSULIN ASPART PER UNIT SC SCH ×2 (09:10→12:44)
--- NOTE | 2021-06-05 12:19 | Pharmacy Report ---
Pharmacy Glycemic Short Note 2 - Date of Service June 05, 2021 - Glycemic Short BSG Results (Last 24 hours): 06/04/21 06/04/21 06/04/21 15:01 16:31 20:58 Glucose 170 H POC Glucose 137 H 446 H* 06/04/21 06/04/21 06/04/21 20:59 21:04 21:40 Glucose 201 H POC Glucose 179 H 202 H 06/05/21 06/05/21 06/05/21 05:41 07:52 11:53 Glucose 159 H POC Glucose 149 H 198 H OUTPATIENT ANTIDIABETIC REGIMEN: * none - new diagnosis * A1c = 15% ASSESSMENT: 06/05: * Bette received 90 units of SQ insulin yesterday with good glycemic control (60 units of Lantus + 30 units of Novolog) * Fasting BSG of 149 mg/dL remains above goal but has greatly improved and is acceptable for new diagnosis of DM. * Patient continues to have post prandial fluctuations - will tighten carb cov erage 06/04: * Bette received 46 units of Lantus + continuous IV insulin infusion at a rate of 5- 7.2 units/hr yesterday * Insulin infusion was held overnight. RN notes improvement in mental status. * Dextrose containing fluids have been stopped. Patient has been advanced to diabetic diet and started on novolog per CF and CR. * Will d/c insulin infusion and continue transition to SQ basal + bolus insulin 06/03: * Bette is a newly diagnosed diabetic, A1c 15%, that presented in DKA * Patient was started on IV insulin infusion yesterday. Infusion is currently running at 7.2 units/hr. * Anion gap has closed, bi carb remains quite low and BSGs have ranged from 177- 268 mg/dL thus far today. Per discussion with provider, patient remains symptomatic (sleepy with acid odor on breath). Plan to continue IV infusion overnight, overlapped with Lantus SQ. PLAN FOR INPATIENT GLYCEMIC CONTROL: * Basal insulin * Lantus 45 units SQ qAM * Bolus insulin - tighten carb coverage * NovoLog per scale ACHS or Q6hrs while NPO * Goal Range: 110 to 140 mg/dL * Correction Factor: 15 mg/dL/unit * Nutritional / Prandial insulin: 1 unit for every 4 grams CHO PLAN FOR DISCHARGE: New diagnosis with A1c >10%; consider triple therapy with metformin + basal insulin + prandial insulin. 1. Metformin XR 500mg PO daily with evening meal. * Typically the XR formulation of metformin is better tolerated than the immediate release formulation. Continue to titrate metformin dosing upwards as recommended. Dosage increases should be made in increments of 500 mg weekly, up to 2,000 mg/day PO, given in divided doses. Doses above 2000 mg/day may be better tolerated if divided and given 3 times per day with meals. Max: 2,550 mg/day PO, in divided doses * B12 supplementation may be necessary with manager terminal metformin Anticipate patient requiring 80-100 units of insulin per day (needs will decrease if metformin is added) 2. Basal insulin: Semglee (insulin glargine-yfgn), start at 45 units SQ daily and titrate as appropriate 3. Prandial insulin: Regular insulin 10 units SQ with meals + correction if needed
--- NOTE | 2021-06-05 14:44 | Discharge Summary ---
Date of Service June 05, 2021 Admission HPI Per Admitting Provider 41 yo male comes in from half-way with confusion. In the ER was found to have an elevated blood sugar, anion gap, metabolic acidosis. Patient is a poor historian. Principal Diagnosis DKA, new diagnosis of diabetes Discharge Exam General: well developed, well nourished, comfortable, no distres Neck: supple, trachea midline, normal thyroid Lungs: clear to auscultation bilaterally, normal respiratory effort, no accessory muscle use, no distress Heart: regular S1 and S2, no murmur, peripheral pulses normal, capillary refill normal, no edema Abdomen: soft, NT, ND, + BS, no hepatomegaly, normal to percussion Extremities: normal in appearance, no cyanosis, no petechiae, strength is 5/5 bilaterally Neuro: alert, cooperative, moves all extremities, no focal motor deficits, CN II-XII intact Skin: warm, dry, no rash, normal turgor Psych: alert, oriented x 3, euthymic affect Discharge Data Allergies Allergy/AdvReac Type Severity Reaction Status Date / Time No Known Allergies Allergy Unverified 06/02/21 11:43 Consultations 06/02/21 12:42 ED Decision to Admit Stat Ordered Studies 06/02/21 09:30 CT head/brain wo con Stat Hospital Course (1) DKA (diabetic ketoacidosis): new diagnosis, could have been triggered by acute illness with COVID anion gap now closed, off insulin drip for two days transition to Lantus 45 units, Novolog TID diabetic diet, eating well past two days phos almost normal, K is still low, replacing today instructions provided from pharmacy about Lantus and rapid acting insulin start Metformin on discharge d/w provider at [facility], they will make adjustments (2) Acute metabolic encephalopathy: likely some metabolic encephalopathy from acidosis resolved for three days, he is alert and oriented x 3 (3) COVID-19: on room air no need for steroids or remdesevir place on lovenox for DVT prophylaxis (4) Acute kidney failure: CR improved to 1.0, making a lot of urine stopped IV fluids two days ago (5) Hypophosphatemia: up to 2.2 today, give 15mmol of K phos (6) Hypokalemia: 2.6 today, continue 20mEq BID on discharge (7) Diabetes: new diagnosis, unclear what type will be discharged on triple therapy with Metformin, Lantus , Novolog Total Time Total Time Spent Total Time Spent (In Minutes): 33 minutes Discharge Plan Discharge Items [facility]position[facility] Reason For Visit: DIABETIC KETOACIDOSIS Discharge Diagnosis: DKA Diabetes, new diagnosis Condition on Discharge: Good Goals: control diabetes Activity: Resume your previous activity Weightbearing: Full weightbearing Non-emergency contact: Primary Care Provider Call non-emergency contact if: you have any medication questions Follow-up/Referrals: Jagjit LU [Primary Care Provider] - Diet: Carb Consistent or DM2 Addtl Attending Provider Instructions: Medications: - INSULIN: see recommendations from pharmacy in terms of Lantus and rapid acting insulin - METFORMIN: 500mg ER in evening, can increase to BID if he tolerates - POTASSIUM: give 20mEq BID for 5 days as potassium is still a little low DKA, dehydration, acute kidney injury: quickly resolved with insulin drip, aggressive IV fluids sugars have been < 200 for two days on Lantus and Novolog start Metformin on discharge for triple therapy, see below pharmacy recommendations for discharge PLAN FOR DISCHARGE: New diagnosis with A1c >10%; consider triple therapy with metformin + basal insulin + prandial insulin. 1. Metformin XR 500mg PO daily with evening meal. * Typically the XR formulation of metformin is better tolerated than the immediate release formulation.Continue to titrate metformin dosing upwards as recommended. Dosage increases should be made in increments of 500 mg weekly, up to 2,000 mg/day PO, given in divided doses. Doses above 2000 mg/day may be better tolerated if divided and given 3 times per day with meals. Max: 2,550 mg/day PO, in divided doses * B12 supplementation may be necessary with terminal clerk metformin Anticipate patient requiring 80-100 units of insulin per day (needs will decrease if metformin is added) 2. Basal insulin: Semglee (insulin glargine-yfgn), start at 45 units SQ daily and titrate as appropriate 3. Prandial insulin: Regular insulin 10 units SQ with meals + correction if needed COVID 19: no signs of pneumonia, lungs clear on auscultation and imaging, no need for dexamethasone Pending Studies at Discharge: No Stand-Alone Forms: [facility] Skilled Items Patient informed of condition?: Yes Discharge Level of Care: Other Communicable Disease: No Discharge Prognosis: Stable Lines: None Urinary Catheter: No Medications and DC Order Prescriptions: New potassium chloride 20 mEq Tablet,Er Particles/Crystals 20 meq PO BID 5 Days Qty: 10 RF: 0 metformin 500 mg tablet extended release 24hr 500 mg PO PM Qty: 30 RF: 3 insulin aspart U-100 [Novolog U-100 Insulin aspart] 100 unit/mL Solution 1 unit SC ACHS 30 Days Qty: 0.3 RF: 0 Lantus Solostar U-100 Insulin 100 unit/mL (3 mL) Insulin Pen 45 unit SC QAM 30 Days Qty: 13.5 RF: 3 Continued levalbuterol tartrate [Xopenex HFA] 45 mcg/actuation Hfa Aerosol Inhaler 2 inh INHALATION QID PRN (Reason: Shortness Of Breath) RF: 0 [place] 160 mcg/actuation Hfa Aerosol Inhaler 1 puff INHALATION BID RF: 0 Discharge Orders: Discharge Order (Routine); Ordered 06/05/21 Ordered By: Edenilson Jaimes Admission Data Admit Date/Time: 06/02/21 13:02 Attending Provider: Edenilson Jaimes Admit Provider: Armaan Higgins Primary Care Provider: Jagjit LU Other Providers: Armaan Higgins Coding Level of Care Code D/C DAY MANAGEMENT >30 MINS Diagnoses DKA (diabetic ketoacidosis) E11.10 Acute metabolic encephalopathy G93.41 COVID-19 U07.1 Acute kidney failure N17.9 Hypophosphatemia E83.39 Hypokalemia E87.6 Diabetes E11.9
== END 2021-06-05 15:48 | DRG 637 ==
LOC: ED 09:00 → 2S 13:02 → SUATTDRO 13:02 → 2S 15:02